=== PATIENT | male | born 1965 | race Caucasian/White ===

== ENCOUNTER → 2025-03-01 09:48 | Outpatient (CLI) | payer OTHER, SELFPAY ==
[2025-03-01 11:51] LABS: Hemoglobin A1C% w Est Avg Glu 4.7 % (4.0-6.0)
[2025-03-01 11:56] LABS: Alanine Aminotransferase 31 IU/L (<50); Albumin 5.0 g/dL (3.5-5.0); Albumin Globulin Ratio 1.8 (1.0-2.8); Alkaline Phosphatase 67 U/L (38-126); Blood Urea Nitrogen 17 mg/dL (9-20); Calcium 10.2 mg/dL (8.4-10.2); Carbon Dioxide 31 mmol/L (22-32); Chloride 100 mmol/L (98-107); Cholesterol 191 mg/dL (140-199); Estimated Glomerular Filt Rate > 60 mL/min (>60); Globulin 2.8 g/dL (1.7-4.1); Glucose 100 mg/dL (70-99); HDL Cholesterol 81 mg/dL (40-60); HEMOLYSIS < 15 (0-50); Potassium 4.8 mmol/L (3.4-5.1); Sodium 139 mmol/L (137-145); Total Protein 7.8 g/dL (6.3-8.2); Triglycerides 127 mg/dL (35-150)
[2025-03-01 12:15] LABS: Microalbumi Creatinin Ratio Ur 4.0 ug/mg CR (<30)
[2025-03-01 12:25] LABS: Thyroid Stimulating Hormone 0.233 uIU/mL (0.47-4.68)
[2025-03-02 06:36] LABS: PSA, Total 3.5 ng/mL (0.0-4.0)
== END ==
PROVIDERS: Referring Provider Family Medicine; Visit Provider Family Medicine
DX: E03.9 Hypothyroidism, unspecified (principal); I10 Essential (primary) hypertension; E78.5 Hyperlipidemia, unspecified; K21.9 Gastro-esophageal reflux disease without esophagitis; Z12.5 Encounter for screening for malignant neoplasm of prostate
CPT/HCPCS: 36415; 80053; 80061; 82043; 82570; 83036; 84153; 84154; 84443